=== PATIENT | male | born 1990 | race Caucasian/White ===

== ENCOUNTER 2019-08-23 02:43 | Emergency (ER) | payer OTHER ==
--- NOTE | 2019-08-23 02:50 | ED Physician Documentation ---
PD HPI BACK PAIN - Stated complaint Stated Complaint: BK PX - History obtained from History obtained from: Patient - History of Present Illness Timing - onset: How many days ago (3-4) Timing - details: Gradual onset, Waxing and waning Pain level now: 8 Location: Lower, Other (across lower back) Quality: Pain, Spasm Associated symptoms: No: Fever, Weakness, Numbness, Incontinent of urine, Unable to urinate, Hematuria, Incontinent of stool Improves with: Rest Worsened by: Movement Recently seen: Other (seen by physical therapist yesterday) - Additional information Additional information: c/o low back pain x "few days" (per patient). no recent injury. He says he has chronic back pain since a fall several years ago, although he has never required any prescription medications for his back pain except ibuprofen. Pain is distinctly worse with movement Review of Systems Constitutional: denies: Fever, Chills, Sweats : denies: Dysuria, Frequency, Hematuria Skin: denies: Rash Musculoskeletal: reports: Back pain Neurologic: denies: Generalized weakness, Focal weakness, Numbness (mild BLE paresthesias at times) PD PAST MEDICAL HISTORY - Past Medical History Past Medical History: No - Past Surgical History Past Surgical History: No - Present Medications Home Medications: Ambulatory Orders Medication Instructions Recorded Confirmed Cyclobenzaprine [Flexeril] 10 mg PO TID PRN #20 tablet 08/23/19 Oxycodone HCl/Acetaminophen 1 - 2 each PO Q6H PRN #14 tablet 08/23/19 [Percocet 5-325 mg Tablet] - Allergies Allergies/Adverse Reactions: Allergies Allergy/AdvReac Type Severity Reaction Status Date / Time No Known Drug Allergies Allergy Verified 08/23/19 03:08 - Living Situation Living Arrangement: reports: At home PD ED PE NORMAL - Vitals Vital signs reviewed: Yes - General General: Alert and oriented X 3, Well developed/nourished, Other (sitting on edge of stretcher in obvious painful distress) - Cardiac Cardiac: No murmur - Respiratory Respiratory: No respiratory distress, Clear bilaterally - Back Back: No CVA TTP, No spinal TTP - Derm Derm: Normal color, Warm and dry, No rash - Neuro Neuro: No motor deficit, No sensory deficit PD ED PE EXPANDED - Cardiac Cardiac: Tachy, Regular Rhythm Results - Vitals Vitals: Vital Signs - 24 hr 08/23/19 08/23/19 08/23/19 02:50 04:05 04:32 Temperature 36.8 C Heart Rate 113 H 87 65 Respiratory 19 17 16 Rate Blood Pressure 141/77 H 116/84 H 115/62 O2 Saturation 100 100 98 08/23/19 08/23/19 08/23/19 04:42 05:10 05:12 Temperature Heart Rate 87 Respiratory 18 19 19 Rate Blood Pressure 115/62 O2 Saturation 99 Oxygen O2 Source Room air PD MEDICAL DECISION MAKING - ED course Complexity details: re-evaluated patient, considered differential, d/w patient ED course: atraumatic LBP. presents in obvious painful discomfort, prefers to sit still and distinctly worse with movement (thus not suggestive of renal colic). suspect musculoskeletal back pain. emergent testing not indicated at this time (no "red flags", including numbness (occasional mild paresthesias), weakness, fever, bowel/bladder incontinence, saddle anesthesia, abnormal skin findings). He had adequate relief with IM dilaudid x 2 mg and PO flexeril, although he then became nauseas and lightheaded, appeared pale on reexam and mildly diaphoretic. I had him lie supine on stretcher and I placed him in trendelenberg x 20 minutes with reported improvement and appeared normal color and NAD on reevaluation. Departure - Departure Disposition: 01 Home, Self Care Clinical Impression: Back pain Condition: Good Instructions: ED Neck Back Pain General Follow-Up: ADAMARIS Jasso [Provider Group] Prescriptions: Cyclobenzaprine [Flexeril] 10 mg PO TID PRN #20 tablet PRN Reason: Spasms Oxycodone HCl/Acetaminophen [Percocet 5-325 mg Tablet] 1 - 2 each PO Q6H PRN #14 tablet PRN Reason: pain Forms: Activity restrictions Discharge Date/Time: 08/23/19 05:13
[2019-08-23] MEDS ORDERED: CYCLOBENZAPRINE 10 MG TABLET PO STA (03:25)
[2019-08-23] MEDS ORDERED: HYDROmorphone 1 MG/ML SYRINGE IM STA (03:25)
[2019-08-23] MEDS ORDERED: ONDANSETRON ODT 4 MG TABLET TL STA (04:25)
[2019-08-23 04:33] VITALS: BP 115/62
== END 2019-08-23 05:13 | disposition home or self-care (01) ==
LOC: ED 02:43
DX: M54.5 Low back pain (principal); R11.0 Nausea; R42 Dizziness and giddiness; T40.2X5A Adverse effect of other opioids, initial encounter
CPT/HCPCS: 96372; 99283; 99284; A9270; J1170; Q0162